=== PATIENT | female | born 1975 ===

== ENCOUNTER 2019-07-02 07:27 | Outpatient (CLI) | payer OTHER | END 2019-07-02 07:36 | disposition home or self-care (01) | LOC: RX STUDY 07:27 | DX: K21.9 Gastro-esophageal reflux disease without esophagitis (principal) ==

== ENCOUNTER 2021-09-16 10:45 | Outpatient (CLI) | payer OTHER ==
[2021-09-16] MEDS ORDERED: PRENA1 TRUE CO1 EACH PO (10:51)
== END 2021-09-16 11:19 | disposition home or self-care (01) ==
LOC: NST 10:45
PROVIDERS: ATTEND Obstetrics & Gynecology
DX: Z34.83 Encounter for supervision of other normal pregnancy, third trimester (principal)

== ENCOUNTER 2021-09-23 12:34 | Outpatient (CLI) | payer OTHER ==
[~2021-09-23 12:34] MED LIST: PRENA1 TRUE CO1 EACH PO
== END 2021-09-23 13:27 | disposition home or self-care (01) ==
LOC: NST 12:34
PROVIDERS: ATTEND Obstetrics & Gynecology Maternal & Fetal Medicine
DX: Z34.83 Encounter for supervision of other normal pregnancy, third trimester (principal)

== ENCOUNTER 2021-10-05 12:22 | Outpatient (CLI) | payer OTHER | END 2021-10-05 13:24 | disposition home or self-care (01) | LOC: NST 12:22 | PROVIDERS: ATTEND Obstetrics & Gynecology Maternal & Fetal Medicine | DX: Z34.83 Encounter for supervision of other normal pregnancy, third trimester (principal) ==

== ENCOUNTER 2021-10-13 09:14 | Outpatient (CLI) | payer OTHER | END 2021-10-13 11:41 | disposition home or self-care (01) | LOC: NST 09:14 | PROVIDERS: ATTEND Obstetrics & Gynecology Maternal & Fetal Medicine | DX: Z34.83 Encounter for supervision of other normal pregnancy, third trimester (principal) ==

== ENCOUNTER 2021-10-21 08:00 | Inpatient (IN) | payer OTHER ==
[~2021-10-21] VITALS: Ht 157.5 cm; Wt 108.9 kg
== END 2021-10-24 11:17 | disposition home or self-care (01) | DRG 807 ==
LOC: LDR 10-22 04:15 → OB/GYN 10-22 04:15
PROVIDERS: ADMIT Obstetrics & Gynecology Maternal & Fetal Medicine; ATTEND Obstetrics & Gynecology Maternal & Fetal Medicine
PROC: 10E0XZZ Delivery of Products of Conception, External Approach (ICD-10-PCS; principal; 2021-10-22)
PROC: 0KQM0ZZ Repair Perineum Muscle, Open Approach (ICD-10-PCS; 2021-10-22)
PROC: 4A1HXCZ Monitoring of Products of Conception, Cardiac Rate, External Approach (ICD-10-PCS; 2021-10-22)
DX: O70.1 Second degree perineal laceration during delivery (principal); Z37.0 Single live birth; Z3A.38 38 weeks gestation of pregnancy; Z20.822 Contact with and (suspected) exposure to COVID-19